=== PATIENT | male | born 1970 | race Caucasian/White ===

== ENCOUNTER 2017-05-02 19:22 | Inpatient (IN) | payer OTHER ==
[~2017-05-02] VITALS: Ht 175.3 cm; Wt 75.0 kg
[~2017-05-02 19:22] MED LIST: BLOOD PRESSURE PO; HUMALOG PEN100 U/ML SC; LANTUS INS100 UNITS/ SC; LISINOPRIL10 MG PO; NORCO 325 MG-101 TAB PO; NORFLEX100 MG PO
[2017-05-02 19:29] VITALS: BP 148/92
[2017-05-02 20:00] LABS: LYMPH % 4.9 % (10-50)
[2017-05-02 20:04] LABS: HEMOGLOBIN 16.8 g/dL (14.1-18.0)
--- NOTE | 2017-05-02 20:25 | Emergency Room Report ---
History of Present Illness Time Seen by 2006 Presenting Problem in Triage Pt arrived:Wheelchair Presenting Problem:vomiting since Tuesday. 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 N Clinical Suspician of Infection? Y Mental Status: 1 - Regular (Normal Baseline) Sepsis Risk:Severe Sepsis Risk Have you (or family members/close friends) recently traveled outside the [place]? N If Yes, where/when: Have you had exposure to infectious disease within the past month? TB? Other? Specify: Source patient, RN notes reviewed, old records Exam Limitations no limitations Comment this is a iddm who has been vomiting since tuesday with no fever but dec po intake and denied etoh and no diarrhea Cardiac Chest Pain Chest pain indicative of cardiac No Timing/Duration this evening Severity moderate ALLERGIES Coded Allergies: No Known Allergies (01/26/17) Home Medications Active Scripts Lisinopril 10 MG PO DAILY #30 TAB Prov: 01/27/17 Reported Medications Insulin Lispro (Humalog INSULIN Pen) 0 SC TID History Medical History General CAD? No Angina: Yes VT: No Hypertension? No Hyperlipidemia? No CHF? No DVT? No PE? No COPD? Yes Asthma? Yes Anemia? No GERD? No Gastric ulcers? No GI Bleed? No Hernia? No Thyroid Problems? No Hypothyroidism? No CVA? No Seizures? No Diabetes? Yes Insulin Dependent: Yes Insulin Pump: No Home FSBS? Yes Renal Insuffiency? No End Stage Renal Disease? No UTI? No Stones? No BPH? Yes GB Disease: No Nephritic Syndrome? No Asplenia? No Hepatitis? No Sickle Cell Disease? No Arthritis? No Migraines? No Cataracts? No Glaucoma? No MRSA? No HIV? No TB? No Anxiety? No Depression? No Cancer? No Immunization Hx DT/Tetanus NOT SURE Flu THIS YR Pneumonia Refuses Surgical Hx Previous Surgery?Y CHEST TUBE? Family History Family Hx Diabetes No CAD No Hypertension No Hyperlipidemia No Cancer Yes TB No Social History Smoking Hx Smoker: Current Every Day Smoker Tobacco: Yes Type Cigarettes Packs/day 1 1/2 - 2 Packs Alcohol Alcohol: No Drugs none Review of Systems All Other Systems Reviewed and Negative Constitutional see HPI, denies fever, weakness Eyes denies drainage ENT denies: ear discharge, epistaxis, throat pain. Respiratory denies cough, denies shortness of breath, denies wheezing Cardiovascular denies chest pain, denies palpitations, denies syncope Gastrointestinal see HPI, abdominal pain, denies diarrhea, nausea, vomiting Genitourinary denies: dysuria, frequency, hesitancy, hematuria. Musculoskeletal denies back pain, denies joint pain, denies joint swelling, denies neck pain Skin denies rash Psychiatric/Neurological denies headache, denies seizure Physical Exam Vital Signs Vital Signs Date Time Temp Pulse Resp B/P Pulse O2 O2 Flow FiO2 Ox Delivery Rate 05/02 2039 97.6 104 20 186/116 100 05/02 1929 97.4 109 28 148/92 99 - WBC >12,000 or <4,000 or 10% bands? 2 or more SIRS Criteria Met? B/P:186/116 MAP:110 Creatinine >2.0? UA output<0.5ml/kg/hr for 2 hrs? Platelet count >100,000? Lactate >2.0mmol/1? INR >1.2 or PTT > than 60 sec? Evidence of Organ Dysfunction? Provider documented clinical suspician of infection? Y Sepsis Criteria Count: 2 Sepsis Risk: Severe Sepsis Risk General Appearance no apparent distress Eye Exam - bilateral eye PERRL, bilateral eye EOMI Comment no icterus Ear, Nose, Throat dry mm Neck non-tender Respiratory Status No: respiratory distress. Lung Sounds bilateral: lungs clear. 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 No Results/Orders Laboratory Tests 05/02/172045: ABG pH 7.38, ABG pCO2 (Temp Corrct 24.2 L, ABG pO2 (Temp Correct 90.0, ABG HCO3 14.1 L, ABG Total CO2 14.8 L, ABG O2 Sat (Calculated) 97.2, ABG Base Excess - 11.0 L, Charly Test ACCEPTABLE 05/02/171939: Lactic Acid 5.2 H 05/02/171939: Sodium 129 L, Potassium 3.4 L, Chloride 87 L, Carbon Dioxide 17 L, BUN 52 H , Creatinine 3.2 H, Estimated Creat Clear 30 L, Estimated GFR (MDRD) 21, Glucose 585 *H, Calcium 9.1, Total Bilirubin 0.7, AST 15, ALT 24, Alkaline Phosphatase 184 H, Total Protein 8.5 H, Albumin 4.5, Globulin 4.0 H, Albumin/ Globulin Ratio 1.1, Amylase 1392 *H, Lipase 8676 H, WBC 20.6 *H, RBC 5.98, Hgb 16.8, Hct 51.8, MCV 86.5, RDW 13.6, Plt Count 401, MPV 7.5, Gran % 87.3 H, Gran # 18.0 H, Total Counted 100, Lymphocytes % 4.9 L, Monocytes % 7.1, Eosinophils % 0.6, Basophils % 0.2, Neutrophils 77 H, Band Neutrophils 13 H, Lymphocytes ( Manual) 10, Lymphocytes # 1.0, Monocytes # 1.5 H, Eosinophils # 0.1, Basophils # 0.0, RBC/WBC/PLT Morphology NORMAL, Platelet Estimate NORMAL, PUBS MCHC 32.5, MCH 28.1, Acetone Level DETECTED H Current Medication Orders Sig/Jose David Start time Last Medication Dose Route Stop Time Status Admin Sodium Chloride 1,000 ML .STK-MED ONE 05/02 2105 DC IV Insulin Human Regular 0 .STK-MED ONE 05/02 2053 DC .ROUTE Sodium Chloride 100 ML .STK-MED ONE 05/02 2052 DC IV Insulin Human Regular 100 UNITS .Q25H 05/02 2045 AC Sodium Chloride 100 ML IV Ondansetron HCl 0 .STK-MED ONE 05/02 2001 DC .ROUTE Ondansetron HCl 4 MG ONCE ONE 05/02 2000 DC 05/02 IV 05/02 Sodium Chloride 1,000 ML .Q1H1M 05/02 2000 DC 05/02 IV 05/02 Sodium Chloride 10 ML PRN PRN 05/02 2000 AC IV 05/03 1946 Sodium Chloride 1,000 ML .STK-MED ONE 05/02 1948 DC IV Orders Procedure Date/time Status DIET-NOTHING BY MOUTH 05/03 B Active ARTERIAL BLOOD GAS REQUEST 05/02 2037 Active Acetone, Serum 05/[address] ABD & PELVIS W/O CONTRAST 05/02 1953 Active CULTURE, BLOOD 05/02 1947 Active LACTIC ACID 05/[address] ABD/PELVIS REQ 05/02 1944 Active URINALYSIS/COMPLETE 05/02 1944 Active LIPASE 05/02 1944 Complete CBC WITH AUTO DIFF 05/02 1944 Complete CHEM 12 PROFILE 05/02 1944 Complete AMYLASE 05/02 1944 Complete DIFFERENTIAL-WBC 05/02 1940 Complete XRAY/CT/US XRAY/CT/US CT abdomen, pelvis CT interpretation by discussed w/radiologist Time results known: 2101 CT Results normal/NAD Departure Departure Time of Disposition 2106 Disposition Still a Patient Clinical Impression Primary Impression: DKA (diabetic ketoacidoses) Qualifiers: Diabetes mellitus type: type 1 Diabetes mellitus complication detail: without coma Qualified Code: E10.10 - Type 1 diabetes mellitus with ketoacidosis without coma Secondary Impressions: Pancreatitis, acute Qualifiers: Pancreatitis type: unspecified pancreatitis type Acute pancreatitis complication: unspecified Qualified Code: K85.90 - Acute pancreatitis without necrosis or infection, unspecified Renal insufficiency Condition STABLE ED Critical Care Critical Care Yes Time spent 30-74 min Vital system(s) involved: Metabolic Failure I was present at bedside for Coordinating pt's care, Reviewing lab results, Reviewing old records, Discussing pt condition, For re-examinations, Examining radiographs at 2108
[2017-05-02 20:50] LABS: ALLEN'S TEST ACCEPTABLE; ARTERIAL TCO2 14.8 MMOL/L (23-27); OXYGEN ROOM AIR
[2017-05-02 20:53] LABS: NEUTROPHILS 77 % (42-76)
--- NOTE | 2017-05-02 22:37 | RADIOLOGY REPORT PS360 ---
CT ABD PELVIS W/O CONTRAST HISTORY: PAINabdominal pain. Vomiting nausea. Diabetic Patient Age: 47 years: Male Ordering Physician: Jim Gamez MD TECHNIQUE: Helical CT scanning performed through the abdomen pelvis with no oral nor IV contrast COMPARISON :Previous CT abdomen pelvis 02/03/2015 FINDINGS Lower thorax. No acute findings hyperexpansion underlying emphysematous changes Upper normal wall thickness distal esophagus Abdomen. Pelvis. Lack of oral and IV contrast decreases sensitivity. Stomach. Prominent gastric distention. Fluid-filled Stomach measures 22 cm height with this fluid filled stomach draping towards uppermost pelvis towards the pelvic inlet. No no gastric wall thickening... Consider/Suggest NG tube... There is a small amount of air which is seen at the right upper quadrant most likely in the region of the pylorus or due to bulb. No free air. Be present. Otherwise encounter a moderately distended a fluid-filled descending duodenum-dilated up to 3.4 cm. This ends changes caliber rather abruptly as it as a duodenum crosses midline-between SMA and aorta question borderline wall thickening at the third portion of duodenum as it passes behind the SMA. Note patient is likely a diabetic with likely subcutaneous injections evident on both sides superficial anterior abdominal wall. With this possibly the gastric dilatation could conceivably reflect gastroparesis or possibly ileus from an electrolyte/metabolic abnormality rather than some form of obstruction The remainder the small bowel appears normal caliber with with areas upper normal wall thickness. Terminal ileum and appendix appear merle l. There is some contrast material within the cecum as well as rectum, likely ingested medication. Large unremarkable. Kidneys. No urinary tract calculi nor obstruction. Gallbladder. Cannot exclude sludge. Liver. Satisfactory on this noncontrast study No ductal dilatation. Spleen unremarkable. Moderate Atherosclerotic calcification aorta No retroperitoneal adenopathy. Osseous structures unremarkable : IMPRESSION 1. . Fluid-filled distended elongated J-shaped stomach. Consider NG tube to decompressed fluid-filled stomach Also the fluid filled proximal duodenal loop is distended of the midline where crosses behind the SMA. Small bowel changes caliber here.. (question SMA syndrome vs minor focal wall thickening here vs ileus or gastroparesis) 2. Otherwise no acute abdominal findings. No free air no free fluid no focal inflammatory process. 3. Gallbladder. No calcified stones.. Question sludge & debris. No wall thickening. 4. subcutaneous injections at the anterior abdominal wall noted copy to francesca / vrc
--- NOTE | 2017-05-02 22:37 | RADIOLOGY REPORT PS360 ---
CHEST-PORTABLE Ordering physician: Jim Gamez MD Age: 47 years Male INDICATION: chest symptomssob nausea vomiting diabetes PROCEDURE: CHEST-PORTABLE FINDINGS: Prior chest film 01/26/2017 used for comparison. No interval change. Lungs well expanded and clear with nothing definitely acute. No pneumothorax. No pleural effusion. Heart normal size. Normal pulmonary vascularity. Hilar and mediastinal structures appear satisfactory. Chest wall unremarkable. T-spine intact. IMPRESSION ----- Stable chest No active disease
[2017-05-02 22:50] VITALS: BP 170/84
[2017-05-02 22:51] VITALS: BP 170/84
[2017-05-03] VITALS (9 sets, daily range): BP systolic 128–166; BP diastolic 66–81
[2017-05-03 04:38] LABS: URINE BLOOD 1+ (NEG)
[2017-05-03 04:40] LABS: URINE BILIRUBIN - DIPSTICK NEGATIVE (NEG)
[2017-05-03 06:28] LABS: BUN 34 mg/dL (7-18)
[2017-05-03 06:32] LABS: GFR (ESTIMATED) 50 ML/MIN (>60)
--- NOTE | 2017-05-03 07:27 | PHARMACY CLINIC NOTE ---
Patient Demographics Patient Demographics Admission date: 05/02/17 Date: 05/03/17 Time: 726 Allergies Coded Allergies: No Known Allergies (01/26/17) HEIGHT- FT: 5 IN: 9.00 K.358 VTE General Information Labs: Laboratory Tests 05/02 1940 Hematology Hgb (14.1 - 18.0 g/dL) 16.8 Hct (42.0 - 52.0 %) 51.8 Plt Count (142 - 424 K/mm3) 401 Disclaimer The following section includes nursing documentation that has been pulled in for pharmacy review. Patient's VTE score: 2 Patient's VTE Risk: VERY LOW RISK Clinical trial participant? No VTE prophylaxis [id number] VTE prophylaxis ordered? Yes Type of prophylaxis/treatment: MARINA at 0727
--- NOTE | 2017-05-03 08:22 | HISTORY AND PHYSICAL REPORT ---
Demographics: Admit date: 05/02/17 Chief complaint: Abdominal pain/vomiting PRIMARY DIAGNOSIS: DKA Allergies: Coded Allergies: No Known Allergies (01/26/17) History of present illness: History of present illness: 47-year-old white male with type 1 diabetes who was at work on Tuesday and felt sick at the end of his work shift, and came home, since that time has been unable to keep fluids down, vomiting, and progressive epigastric pain. Came to the emergency department where he was found to have elevated amylase, lipase and have serum ketones positive along with hyperglycemic blood levels in the 500 range. Patient was diagnosed with "DKA" and admitted to step down unit with insulin drip and n.p.o. status. I reviewed ER notes, labs and x-ray testing. Past medical history: Family HX Diabetes No CAD No Hypertension No Hyperlipidemia No Cancer Yes TB No Immunization HX DT/Tetanus NOT SURE Flu THIS YR Pneumonia Refuses TB Test in last year No General CAD? No Angina: Yes MS: No Hypertension? No Hyperlipidemia? No CHF? No DVT? No PE? No COPD? Yes Asthma? Yes Anemia? No GERD? No Gastric ulcers? No GI Bleed? No Hernia? No Thyroid Problems? No Hypothyroidism? No CVA? No Seizures? No Diabetes? Yes Insulin Dependent: Yes Insulin Pump: No Home FSBS? Yes Renal Insuffiency? No UTI? No Stones? No BPH? Yes GB Disease: No Nephritic Syndrome? No Asplenia? No Hepatitis? No Sickle Cell Disease? No Arthritis? No Migraines? No Cataracts? No Glaucoma? No MRSA? No HIV? No TB? No Anxiety? No Depression? No Cancer? No Past Surgical HX Previous Surgery?Y CHEST TUBE? Current home meds: Active Scripts Lisinopril 10 MG PO DAILY #30 TAB Prov: 01/27/17 Reported Medications Insulin Lispro (Humalog INSULIN Pen) 0 SC TID Social Hx: Smoking HX Tobacco Yes Type Cigarettes Packs/day 1 1/2 - 2 PACKS Alcohol Alcohol: No Hx of Drug Use Drug Use? No Patien't marital status is Patient's support system is excellent Comment: Patient works at [employer] in [facility] Review of systems: Constitutional fever, malaise, weakness. Respiratory No: no symptoms reported. Cardiovascular No no symptoms reported Gastrointestinal/Abdominal see HPI Genitourinary No: no symptoms reported. Musculoskeletal No: no symptoms reported. Neurological Yes: weakness. Exam: Lab data for last 24 hours: Laboratory Tests 05/03/17 0643: POC Glucose 179 H 05/03/17 0554: POC Glucose 177 H 05/03/17 0535: Sodium 137, Potassium 3.5, Chloride 103, Carbon Dioxide 20 L, BUN 34 H, Creatinine 1.5 H, Estimated Creat Clear 59, Estimated GFR (MDRD) 50, Glucose 170 H, Calcium 7.2 L, Amylase 600 *H, Lipase 2172 H, Acetone Level NONE DETECTED 05/03/17 0506: POC Glucose 148 H 05/03/17 0426: Urine Color YELLOW, Urine Appearance CLEAR, Urine pH 6.0, Ur Specific [place] 1.020, Urine Protein 1+ H, Urine Ketones 1+ H, Urine Blood 1+ H, Urine Nitrate NEGATIVE, Urine Bilirubin NEGATIVE, Urine Urobilinogen 0.2, Ur Leukocyte Esterase NEGATIVE, Urine RBC 5-10, Urine WBC 5-10, Hyaline Casts 5-10, Coarse Granular Casts 5-10, Urine Glucose 1+ H 05/03/17 0405: POC Glucose 145 H 05/03/17 0303: POC Glucose 145 H 05/03/17 0202: POC Glucose 187 H 05/03/17 0101: POC Glucose 225 H 05/03/17 0100: Lactic Acid 2.1 H 05/03/17 0100: Sodium 136, Potassium 3.3 L, Chloride 100, Carbon Dioxide 22, BUN 43 H, Creatinine 2.0 H, Estimated Creat Clear 42 L, Estimated GFR (MDRD) 36, Glucose 211 H, Calcium 7.4 L 05/03/17 0024: POC Glucose 234 H 05/02/17 2257: POC Glucose 297 H 05/02/17 2215: Sodium 134 L, Potassium 3.2 L, Chloride 96 L, Carbon Dioxide 22, BUN 49 H, Creatinine 2.5 H, Estimated Creat Clear 38 L, Estimated GFR (MDRD) 28, Glucose 350 H, Calcium 8.1 L, Phosphorus 3.7, Magnesium 1.9 05/02/172045: ABG pH 7.38, ABG pCO2 (Temp Corrct 24.2 L, ABG pO2 (Temp Correct 90.0, ABG HCO3 14.1 L, ABG Total CO2 14.8 L, ABG O2 Sat (Calculated) 97.2, ABG Base Excess - 11.0 L, Charly Test ACCEPTABLE 05/02/171939: Troponin I < 0.02 05/02/171939: Lactic Acid 5.2 H 05/02/171939: Sodium 129 L, Potassium 3.4 L, Chloride 87 L, Carbon Dioxide 17 L, BUN 52 H , Creatinine 3.2 H, Estimated Creat Clear 30 L, Estimated GFR (MDRD) 21, Glucose 585 *H, Calcium 9.1, Total Bilirubin 0.7, AST 15, ALT 24, Alkaline Phosphatase 184 H, Total Protein 8.5 H, Albumin 4.5, Globulin 4.0 H, Albumin/ Globulin Ratio 1.1, Amylase 1392 *H, Lipase 8676 H, WBC 20.6 *H, RBC 5.98, Hgb 16.8, Hct 51.8, MCV 86.5, RDW 13.6, Plt Count 401, MPV 7.5, Gran % 87.3 H, Gran # 18.0 H, Total Counted 100, Lymphocytes % 4.9 L, Monocytes % 7.1, Eosinophils % 0.6, Basophils % 0.2, Neutrophils 77 H, Band Neutrophils 13 H, Lymphocytes ( Manual) 10, Lymphocytes # 1.0, Monocytes # 1.5 H, Eosinophils # 0.1, Basophils # 0.0, RBC/WBC/PLT Morphology NORMAL, Platelet Estimate NORMAL, PUBS MCHC 32.5, MCH 28.1, Acetone Level DETECTED H Microbiology 05/03 042 URINE CC: Urine Culture - RECD 05/02 2200 BLOOD: Anaerobic Blood Culture - CAN Cancelled: DUP ORDER 05/02 2200 BLOOD: Aerobic Blood Culture - CAN Cancelled: DUP ORDER 05/02 2200 BLOOD: Anaerobic Blood Culture - CAN Cancelled: DUP ORDER 05/02 2200 BLOOD: Aerobic Blood Culture - CAN Cancelled: DUP ORDER 05/02 1940 BLOOD: Anaerobic Blood Culture - RECD 05/02 1940 BLOOD: Aerobic Blood Culture - RECD 05/02 1940 BLOOD: Anaerobic Blood Culture - RECD 05/02 1940 BLOOD: Aerobic Blood Culture - RECD Admission vital signs: 1ST Vital Signs Result Date Time Pulse Ox 99 05/02 1929 B/P 148/92 05/02 1929 Temp 97.4 05/02 1929 Pulse 109 05/02 1929 Resp 28 05/02 1929 O2 Delivery ROOM AIR 05/02 2251 Additional information: Patient is awake, alert, no rash. Oropharynx dry but clear. Sclera clear. No periumbilical or flank bruising. Lungs are clear, heart rate at the upper limit of normal but sinus rhythm. No murmurs. Abdomen is very tender in the epigastric area. No rebound or peritoneal signs otherwise. No CVA tenderness. No edema noted. No clubbing. Patient is neurologically intact Plan: Problem List 1. Pancreatitis, acute 2. Type 1 diabetes Plan: Patient clearly has acute pancreatitis but clearly does not have DKA. His initial ABG was not acidotic. Patient's serum ketones are from his metabolic stress. I stop insulin drip, sliding scale insulin be sufficient for him, and aggressively hydrated him with 2 more liters of lactated Ringer's today. The patient does not drink alcohol. We will get ultrasound of gallbladder, surgical consultation for possible gastric distention requiring NG tube on CT scan, repeat abdominal and chest films today. I am concerned about his low-grade fevers. Check chest x-ray, follow cultures closely. Clear liquids cautiously. at 0821
[2017-05-03] MEDS ORDERED: HUMALOG KW100 UNIT/1 SQ (11:31)
--- NOTE | 2017-05-03 11:38 | RADIOLOGY REPORT PS360 ---
ABD ACUTE(MUL VIEWS) HISTORY: Fever, gastric distention eval gastric distension, fever ORDERING PHYSICIAN: Jim Gamez MD PATIENT AGE: 47 years COMPARISON: None FINDINGS: Follow-up of the chest shows no acute finding. Upright and supine views of the abdomen show nonspecific nonobstructive bowel gas pattern. There are few small air-fluid levels present. No evidence of free air abnormal calcifications or acute bony anomalies. IMPRESSION: 1. Nonspecific nonobstructive bowel gas pattern. 2. Otherwise negative acute abdomen
--- NOTE | 2017-05-03 12:56 | RADIOLOGY REPORT PS360 ---
US GALLBLADDER (ABD LTD) HISTORY: Abdominal pain with nausea and vomiting, pancreatitis pancreatitis ORDERING PHYSICIAN: Jim Gamez MD PATIENT AGE: 47 years COMPARISON: None FINDINGS: PANCREAS: Unremarkable. No obvious mass or abnormal fluid collection. No ductal dilatation LIVER: No focal liver lesions demonstrated. Homogeneous echogenicity. No intrahepatic biliary ductal dilatation evident RIGHT KIDNEY: Unremarkable. Normal size and echogenicity. No hydronephrosis GALLBLADDER: No gallstones, gallbladder wall thickening, pericholecystic fluid, or biliary dilatation. There is a small amount of biliary sludge versus hyper concentrated bile IMPRESSION: No gallstones or gallbladder wall thickening apparent. Minimal amount of sludge versus concentrated bile
--- NOTE | 2017-05-03 12:56 | RADIOLOGY REPORT PS360 ---
US GALLBLADDER (ABD LTD) HISTORY: Abdominal pain with nausea and vomiting, pancreatitis pancreatitis ORDERING PHYSICIAN: iJm Gamez MD PATIENT AGE: 47 years COMPARISON: None FINDINGS: PANCREAS: Unremarkable. No obvious mass or abnormal fluid collection. No ductal dilatation LIVER: No focal liver lesions demonstrated. Homogeneous echogenicity. No intrahepatic biliary ductal dilatation evident RIGHT KIDNEY: Unremarkable. Normal size and echogenicity. No hydronephrosis GALLBLADDER: No gallstones, gallbladder wall thickening, pericholecystic fluid, or biliary dilatation. There is a small amount of biliary sludge versus hyper concentrated bile IMPRESSION: No gallstones or gallbladder wall thickening apparent. Minimal amount of sludge versus concentrated bile
--- NOTE | 2017-05-03 15:09 | CONSULT NOTE ---
Standard Demographics Patient Demo Date of Consultation: 05/03/17 Referring Provider: Jim Gamez MD Reason for Consultation: abdominal distention and pain PRIMARY DIAGNOSIS: DKA Allergies: Coded Allergies: No Known Allergies (01/26/17) History of Present Illness Chief Complaint: Nausea and abdominal pain History of Present Illness: Patient is a 47-year-old diabetic white male who presented to the emergency department yesterday on 05/02/17 with a 3 to four-day history of what he describes as initially a sore throat followed by epigastric pain and nausea and vomiting. He states that he was "unable to keep anything down". He presented to the emergency department where he was evaluated. He was admitted for inpatient management and possible DKA. It was noted the patient had elevated amylase and lipase and evidence of gastric distention on imaging and surgical consultation was obtained today. Past Medical History Reports: COPD, asthma, diabetes mellitus. Surgical History Previous Surgery?Y CHEST TUBE? Allergies Coded Allergies: No Known Allergies (01/26/17) Medications: Active Scripts Lisinopril 10 MG PO DAILY #30 TAB Prov: 01/27/17 Reported Medications Insulin Lispro (Humalog Kwikpen) 15 UNIT SQ TID #15 ML Smoking Hx Tobacco: Yes Smoker: Current Every Day Smoker Type: Cigarettes Packs/day: 1 1/2 - 2 Packs Are you/the child exposed to second-hand smoke: Yes Alcohol Alcohol: No Hx of Drug Use Drug Use? No Review of Systems Constitutional No: chills. Skin No: bruising. Immune/allergy No: anaphalaxis. Eyes No: vision loss. ENT No: hearing loss. Respiratory No: shortness of air. Cardiovascular No: chest pain. GI Positive for: abdomen, nausea, vomitting. (male) No: hematuria. Musculoskeletal No: extremity swelling. Heme No: bleeding. Endocrine No: cold intolerance. Neurological No: change in LOC. Physical Exam Exam General appearance no acute distress Respiratory clear to auscultation Cardiovascular normal heart sounds Abdomen no guarding, no rebound, soft Plan Plan: Patient has evidence of chemical pancreatitis. Uncertain etiology. Gallbladder ultrasound today unremarkable. Appears less likely biliary based on laboratory findings and sonographic imaging of gallbladder. At this time I would recommend expectant management. May go ahead and start clear liquids due to clinical improvement. Uncertain as to the etiology of the patient's symptoms of sore throat unless this is secondary to the vomiting. Findings a gastric distention on initial noncontrast CT scan could be secondary to ileus from pancreatitis, partial gastric outlet obstruction secondary to pancreatic edema, or gastroparesis. Less likely would be mechanical obstruction. at 7938
[2017-05-04] VITALS (8 sets, daily range): BP systolic 148–161; BP diastolic 65–79
--- NOTE | 2017-05-04 07:56 | ACUTE CARE PROGRESS NOTE (QUA) ---
Progress Notes Subjective Date 05/04/17 Time 0753 Note Patient has been tolerating clear liquids fairly well but complains bitterly of a significant sore throat. Nursing notes he is unable to swallow ice chips because of a sore throat. On exam patient is better hydrated, his lips have some scabbed vesicles and the posterior pharynx has significant redness with some eroded blisters and a slight yellow exudate on the right tonsillar pillar. There is no lymphadenitis noted. He has no rash elsewhere, lungs are clear his abdomen is much softer. Objective Findings Last VS-Temp:98.5 B/P:161/72 Pulse:74 Resp:18 SaO2:99 ROOM AIR Last weight lbs:148 oz:8 K.359 Method:Bed Scales Assessment/Plan Problem List 1. Pancreatitis, acute Qualifiers: Pancreatitis type: unspecified pancreatitis type Acute pancreatitis complication: unspecified Qualified Code: K85.90 - Acute pancreatitis without necrosis or infection, unspecified 2. Type 1 diabetes 3. Infective pharyngitis Patient condition Improving Plan: continue current care, patient responded well to fluids. I wonder if pharyngitis might be a viral etiology that could be the source of his pancreatitis. PCR testing, throat cultures, symptomatic relieved with magic mouthwash and Chloraseptic spray along with intravenous Unasyn therapy to cover bacterial pathogens. This inpt stay is expected to cross 2 MNs from start of care Yes at 0754
[2017-05-04 09:26] LABS: CORONAVIRUS 229E NOT DETECTED (NOT DETECTE); CORONAVIRUS HKU 1 NOT DETECTED (NOT DETECTE); CORONAVIRUS NL63 NOT DETECTED (NOT DETECTE); CORONAVIRUS OC43 NOT DETECTED (NOT DETECTE); RHINOVIRUS/ENTEROVIRUS NOT DETECTED (NOT DETECTE)
--- NOTE | 2017-05-04 13:17 | SURGEON PROGRESS NOTE ---
Subjective data Subjective data: VIKAS ALMEIDA is a 47 M .Patient denies complaint of nausea and vomitting.He reports his last pain level as 0 on a 0-10 pain scale. Patient's only complaint is sore throat. Less abdominal pain. Tolerating liquids. Assessment findings Assessment Exam ABD: soft, no tenderness Patient plan Plan: IV fluids Additional data: Non-biliary pancreatitis. Continue expectant managemetnt. at 1317
[2017-05-05] VITALS (18 sets, daily range): BP systolic 125–167; BP diastolic 66–96
[2017-05-05 06:44] LABS: LYMPH # 1.1 K/mm3 (0.7-4.5); LYMPH % 7.1 % (10-50)
[2017-05-05 07:12] LABS: HEMOGLOBIN 14.2 g/dL (14.1-18.0)
--- NOTE | 2017-05-05 07:52 | ACUTE CARE PROGRESS NOTE (QUA) ---
Progress Notes Subjective Date 05/05/17 Time 0750 Note Patient is alert, has drank most of his clear liquids, but is very tachypnea this morning and feels like "I need a breathing treatment." Exam is tachypnea, but good air movement, and he slightly tachycardic. Oropharynx looks somewhat better and is moist. No murmurs. Abdomen is scaphoid but soft. No edema noted. Objective Findings Last VS-Temp:97.8 B/P:157/82 Pulse:66 Resp:32 SaO2:96 ROOM AIR Last weight lbs:148 oz:8 K.359 Method:Bed Scales Assessment/Plan Problem List 1. Pancreatitis, acute Qualifiers: Pancreatitis type: unspecified pancreatitis type Acute pancreatitis complication: unspecified Qualified Code: K85.90 - Acute pancreatitis without necrosis or infection, unspecified 2. Type 1 diabetes 3. Infective pharyngitis Patient condition Guarded Plan: continue current care, continue antibiotics. Continue bowel rest and slow diet advancement for pancreatitis issues. I'm concerned that the change in respiratory status is a manifestation of recurrent/unresolve DKA. Check ABG, serum acetone, labs from this morning are pending. This inpt stay is expected to cross 2 MNs from start of care Yes at 0752
[2017-05-05 08:33] LABS: ARTERIAL PO2 164.2 MMHG (80-100)
[2017-05-05 08:34] LABS: ALLEN'S TEST ACCEPTABLE; ARTERIAL ABE -27.8 MMOL/L (-2.4-+2.3); ARTERIAL TCO2 3.1 MMOL/L (23-27); OXYGEN ROOM AIR
--- NOTE | 2017-05-05 08:59 | SURGEON PROGRESS NOTE ---
Subjective data Subjective data: VIKAS ALMEIDA is a 47 M .Patient denies complaint of nausea and vomitting.He reports his last pain level as 0 on a 0-10 pain scale. Patient noted to be tachypnic on exam this morning and transferred back into step-down unit. Assessment findings Assessment Exam General appearance: mild distress ABD: soft Comment: Exam difficult. No obvious peritonitis. Patient plan Plan: Antibiotics Additional data: Patient has significant metabolic acidosis. Remaining labs pending. Unclear etiology. Possibility of worsening pancreatitis is legitimate consideration. May need repeat CT scan. However, pancreatitis is non-biliary. Could require transfer to tertiary facility. at 0852
[2017-05-05 09:03] LABS: BUN 17 mg/dL (7-18)
[2017-05-05 09:07] LABS: GFR (ESTIMATED) 59 ML/MIN (>60)
[2017-05-05 10:09] LABS: NEUTROPHILS 88 % (42-76)
--- NOTE | 2017-05-05 13:36 | RADIOLOGY REPORT PS360 ---
CHEST-PORTABLE HISTORY: tachypnea ORDERING PHYSICIAN: Jim Gamez MD PATIENT AGE: 47 years COMPARISON: 05/02/2017 FINDINGS: The cardiomediastinal silhouette and pulmonary vascularity are within normal limits. There is some increased density left lung base probably related to mild rotation and overlying heart and chest wall. Upright PA and lateral chest may be of further value. The remaining lungs are clear. IMPRESSION: No definite acute finding. Probable summation artifact left lower lobe.
[2017-05-05 21:26] LABS: ARTERIAL PO2 95.2 MMHG (80-100)
[2017-05-05 21:27] LABS: ALLEN'S TEST ACCEPTABLE; ARTERIAL ABE -14.6 MMOL/L (-2.4-+2.3); OXYGEN ROOM AIR
[2017-05-06] VITALS (9 sets, daily range): BP systolic 116–167; BP diastolic 60–84
[2017-05-06 06:29] LABS: BUN 9 mg/dL (7-18); GFR (ESTIMATED) 121 ML/MIN (>60)
[2017-05-06 06:40] LABS: ALLEN'S TEST ACCEPTABLE; ARTERIAL ABE -9.6 MMOL/L (-2.4-+2.3); ARTERIAL PO2 96.4 MMHG (80-100); ARTERIAL TCO2 15.6 MMOL/L (23-27); OXYGEN ROOM AIR
[2017-05-06 06:53] LABS: LYMPH # 1.3 K/mm3 (0.7-4.5); LYMPH % 10.5 % (10-50)
[2017-05-06 07:12] LABS: HEMOGLOBIN 11.2 g/dL (14.1-18.0)
--- NOTE | 2017-05-06 08:00 | ACUTE CARE PROGRESS NOTE (QUA) ---
Progress Notes Subjective Date 05/06/17 Time 0758 Note Overall patient feels better. Much less tachypnea. Vital signs have normalized. No acetone this morning. Low potassium noted. Throat looks better, lungs are clear, heart rate regular, patient able to swallow some soft diet. Objective Findings Last VS-Temp:98.1 B/P:131/60 Pulse:74 Resp:19 SaO2:100 ROOM AIR Last weight lbs:154 oz:6 K.023 Method:Bed Scales Assessment/Plan Problem List 1. Pancreatitis, acute Qualifiers: Pancreatitis type: unspecified pancreatitis type Acute pancreatitis complication: unspecified Qualified Code: K85.90 - Acute pancreatitis without necrosis or infection, unspecified 2. Type 1 diabetes 3. Infective pharyngitis Patient condition Improving, overall improving. Replace electrolytes. Acidosis resolved. This inpt stay is expected to cross 2 MNs from start of care Yes at 0800
[2017-05-06 16:19] LABS: BUN 5 mg/dL (7-18); GFR (ESTIMATED) 121 ML/MIN (>60)
--- NOTE | 2017-05-06 18:25 | SURGEON PROGRESS NOTE ---
Subjective data Subjective data: VIKAS ALMEIDA is a 47 M .Patient denies complaint of nausea and vomitting.He reports his last pain level as 0 on a 0-10 pain scale. Patient without complaints. States he feels much better. Tolerating mechanical soft diet without difficulty. Assessment findings Assessment Exam General appearance: normal appearance, alert ABD: soft, no tenderness Patient plan Plan: CONTINUE MEDICAL MANAGEMENT Additional data: Pancreatitis appears to be resolving. Etiology still unclear but no evidence of biliary pancreatitis requiring surgical intervention. Metabolic acidosis resolved. at 0030
[2017-05-07 04:00] VITALS: BP 121/51
[2017-05-07 06:20] LABS: HEMOGLOBIN 11.1 g/dL (14.1-18.0); LYMPH # 1.4 K/mm3 (0.7-4.5); LYMPH % 18.2 % (10-50)
--- NOTE | 2017-05-07 06:36 | ACUTE CARE PROGRESS NOTE (QUA) ---
Progress Notes Subjective Date 05/07/17 Time 0634 Note Overall patient feels better, throats better, tolerating diet yesterday well. Throat is less red. Much more moist. Heart rate regular, normal rate. Lungs are clear, minimal rhonchi in the LEFT lower lung field. Abdomen much softer, epigastric tenderness is improved. Objective Findings Last VS-Temp:98.7 B/P:121/51 Pulse:72 Resp:18 SaO2:97 ROOM AIR Last weight lbs:154 oz:6 K.023 Method:Bed Scales Assessment/Plan Problem List 1. Pancreatitis, acute Qualifiers: Pancreatitis type: unspecified pancreatitis type Acute pancreatitis complication: unspecified Qualified Code: K85.90 - Acute pancreatitis without necrosis or infection, unspecified 2. Type 1 diabetes 3. Infective pharyngitis 4. DKA (diabetic ketoacidoses) Qualifiers: Diabetes mellitus type: type 1 Diabetes mellitus complication detail: without coma Qualified Code: E10.10 - Type 1 diabetes mellitus with ketoacidosis without coma Patient condition Improving Plan: continue current care, continue antibiotic therapy, replace potassium orally. Replace calcium intravenously. Possibly home tomorrow if labs tomorrow morning look good. This inpt stay is expected to cross 2 MNs from start of care Yes at 0635
[2017-05-07 07:27] VITALS: BP 151/64
--- NOTE | 2017-05-07 08:36 | SURGEON PROGRESS NOTE ---
Subjective data Subjective data: VIKAS ALMEIDA is a 47 M .Patient denies complaint of nausea and vomitting.He reports his last pain level as 0 on a 0-10 pain scale. Patient feels much better. His only complaint is right ear "popping" and congestion. No abdominal complaints. Sore throat better. Assessment findings Assessment Exam General appearance: normal appearance, alert ABD: soft, no tenderness Patient plan Plan: continue medical management at 0821
[2017-05-07 09:03] VITALS: BP 151/64
[2017-05-07 16:00] VITALS: BP 137/79
[2017-05-07 19:00] VITALS: BP 158/75
[2017-05-07 20:15] VITALS: BP 158/75
[2017-05-08] VITALS (8 sets, daily range): BP systolic 120–159; BP diastolic 52–83
[2017-05-08 06:24] LABS: HEMOGLOBIN 12.1 g/dL (14.1-18.0); LYMPH # 1.4 K/mm3 (0.7-4.5); LYMPH % 18.1 % (10-50)
--- NOTE | 2017-05-08 07:40 | ACUTE CARE PROGRESS NOTE (QUA) ---
Progress Notes Subjective Date 05/08/17 Time 0738 Note Patient overall feels better than couple of days ago, but notes that every time he eats he has a burning pain and sharp stabbing pain in the lower chest/upper epigastric area. This has limited him from ideal oral intake. Also noted, small acetone yesterday in serum testing and this morning his acidosis is somewhat worsened with CO2 levels declining. Potassium is unremarkable, kidney function is good. The patient is a bright, alert, pleasant, talkative. Throat looks better, lungs are clear, heart rate regular without tachycardia. He does not exhibit tachypnea signs today. Continues to appear cachectic. Abdomen is soft with some epigastric tenderness noted. Objective Findings Laboratory Tests 05/08/17 0620: POC Glucose 324 *H 05/08/17 0550: Sodium 123 L, Potassium 3.8, Chloride 96 L, Carbon Dioxide 14 L, BUN 7, Creatinine 0.7 L, Estimated Creat Clear 131, Estimated GFR (MDRD) 121, Glucose 371 H, Calcium 7.9 L, WBC 7.6, RBC 4.34 L, Hgb 12.1 L, Hct 38.4 L, MCV 88.4 , RDW 14.0, Plt Count 262, MPV 8.0, Gran % 75.0, Gran # 5.7, Lymphocytes % 18.1, Monocytes % 5.2, Eosinophils % 1.4, Basophils % 0.3, Lymphocytes # 1.4, Monocytes # 0.4, Eosinophils # 0.1, Basophils # 0.0, PUBS MCHC 31.6 L, MCH 27.9 05/07/17 2018: POC Glucose 179 H 05/07/17 1710: POC Glucose 211 H 05/07/17 1147: POC Glucose 335 *H Last VS-Temp:97.9 B/P:151/83 Pulse:71 Resp:20 SaO2:96 ROOM AIR Last weight lbs:154 oz:6 K.023 Method:Bed Scales Assessment/Plan Problem List 1. Pancreatitis, acute Qualifiers: Pancreatitis type: unspecified pancreatitis type Acute pancreatitis complication: unspecified Qualified Code: K85.90 - Acute pancreatitis without necrosis or infection, unspecified 2. Type 1 diabetes 3. Infective pharyngitis 4. DKA (diabetic ketoacidoses) Qualifiers: Diabetes mellitus type: type 1 Diabetes mellitus complication detail: without coma Qualified Code: E10.10 - Type 1 diabetes mellitus with ketoacidosis without coma 5. Epigastric pain Patient condition Stable Plan: continue current care, I'm concerned about the reappearance of acetone and we will check this again today. His glucose levels are not significantly elevated, and I wonder if the acetone levels are simply from his infectious issues and dehydration. Fluid boluses today. Proton pump inhibitors to help with epigastric pain. I will discuss with surgery service whether endoscopy would be indicated. This inpt stay is expected to cross 2 MNs from start of care Yes at 0740
--- NOTE | 2017-05-08 10:36 | SURGEON PROGRESS NOTE ---
Subjective data Subjective data: VIKAS ALMEIDA is a 47 M .Patient denies complaint of nausea and vomitting.He reports his last pain level as 3 on a 0-10 pain scale. Patient complains today of immediate post-prandial epigastric pain and discomfort. No nausea. Assessment findings Assessment Exam General appearance: normal appearance, alert ABD: soft, no tenderness Patient plan Plan: Antibiotics Additional data: Would not pursue EGD as immediate next step. Symptoms may be secondary to pancreatitis issues. Since his initial CT scan was done without IV or oral contrast plan to repeat CT scan tomorrow morning with IV and oral contrast for better delineation of GI tract and solid organs. at 1039
[2017-05-09] VITALS (16 sets, daily range): BP systolic 137–165; BP diastolic 54–85
[2017-05-09 06:46] LABS: LYMPH # 2.2 K/mm3 (0.7-4.5); LYMPH % 20.3 % (10-50)
[2017-05-09 06:51] LABS: HEMOGLOBIN 13.6 g/dL (14.1-18.0)
[2017-05-09 06:56] LABS: BUN 6 mg/dL (7-18); GFR (ESTIMATED) 91 ML/MIN (>60)
--- NOTE | 2017-05-09 09:00 | ACUTE CARE PROGRESS NOTE (QUA) ---
Progress Notes Subjective Date 05/09/17 Time 0859 Assessment/Plan Problem List 1. Pancreatitis, acute 2. Type 1 diabetes 3. Infective pharyngitis 4. DKA (diabetic ketoacidoses) 5. Epigastric pain This inpt stay is expected to cross 2 MNs from start of care Yes Antibiotic Stewardship (2) Current Culture Results Microbiology 05/04 0920 THROAT: Throat Culture - RES STREPTOCOCCUS PYOGENES 05/03 0426 URINE CC: Urine Culture - COMP 05/02 220 BLOOD: Anaerobic Blood Culture - CAN Cancelled: DUP ORDER 05/02 220 BLOOD: Aerobic Blood Culture - CAN Cancelled: DUP ORDER Infxn that will respond? Yes (S. PYOGENES) Right drug,dose,and route? Yes (UNASYN) More targeted antbx? No at 0900
--- NOTE | 2017-05-09 10:35 | RADIOLOGY REPORT PS360 ---
CT ABD PELVIS W/ CONTRAST CLINICAL INDICATION: Epigastric pain, pancreatitis EPIGASTRIC PAIN PANCREATITIS ORDERING PHYSICIAN: Jim Gamez MD PATIENT AGE: 47 years COMPARISON: 05/02/2017 TECHNIQUE: Axial images obtained with sagittal and coronal reformats. 3 phase imaging performed of the upper abdomen/pancreas PROCEDURE: Oral Contrast: Gastroview IV Contrast: 75 mL of Isovue-370. FINDINGS: Small bilateral pleural effusions have developed with atelectatic changes in the lung bases. The liver, gallbladder, and pancreas have an unremarkable CT appearance. No evidence of pancreatic abscess or necrosis. There are several isodensity is present in the spleen nonspecific measuring up to 8 mm. These are not significantly changed. No renal calculi or hydronephrosis. No renal mass. No ureteral calculi. No evidence of appendicitis or diverticulitis. No intestinal obstruction or free air. Previously noted gastric distention has improved. There is nonrotation of the bowel with the small bowel mostly on the left side in the large bowel the right. There is thickening of the cecum and ascending colon is may be due to nondistention or colitis. No acute bony anomalies. IMPRESSION: 1. Interval development of small bilateral pleural effusions 2. Anasarca with diffuse subcutaneous and peritoneal edema with a small amount fluid in the pelvis. 3. No CT evidence of acute pancreatitis.
--- NOTE | 2017-05-09 11:24 | ACUTE CARE PROGRESS NOTE (QUA) ---
Progress Notes Subjective Date 05/09/17 Time 1121 Note Patient continues to have very poor p.o. intake because of burning in his stomach after he eats. He's had no fevers. He he is not tachypneic or tachycardic this morning feels overall generally slightly weak. Lungs are clear, abdomen soft with epigastric tenderness as previously noted. Heart rate regular. No edema or clubbing. Patient's neurologically intact, oropharynx is clear. Unfortunately he once again acidotic this morning with ketones again present in his serum. Objective Findings Last VS-Temp:98.0 B/P:149/77 Pulse:86 Resp:16 SaO2:100 ROOM AIR Last weight lbs:154 oz:6 K.023 Method:Bed Scales Assessment/Plan Problem List 1. Pancreatitis, acute Qualifiers: Pancreatitis type: unspecified pancreatitis type Acute pancreatitis complication: unspecified Qualified Code: K85.90 - Acute pancreatitis without necrosis or infection, unspecified 2. Type 1 diabetes 3. Infective pharyngitis 4. DKA (diabetic ketoacidoses) Qualifiers: Diabetes mellitus type: type 1 Diabetes mellitus complication detail: without coma Qualified Code: E10.10 - Type 1 diabetes mellitus with ketoacidosis without coma 5. Epigastric pain Patient condition Stable, Deteriorating Plan: continue current care, restart insulin drip because of the presence of ketones, and metabolic acidosis. I'm concerned about his recurrent episodes of acidosis after insulin drip therapy clears his ketones but then recurs. Echocardiogram today to make sure we don't have some type of valvular vegetation issue from his strep in his throat infection. Also, he continues to have some signs/symptoms of lingering pancreatitis. GI consultation today. Surgery remains involved and ordered a CT scan of abdomen and pelvis. We will review this. Possible need for EGD? This inpt stay is expected to cross 2 MNs from start of care Yes Antibiotic Stewardship (2) Infxn that will respond? Yes (S. PYOGENES) Right drug,dose,and route? Yes (UNASYN) More targeted antbx? No at 1124
--- NOTE | 2017-05-09 12:31 | SURGEON PROGRESS NOTE ---
Subjective data Subjective data: VIKAS ALMEIDA is a 47 M .Patient denies complaint of nausea and vomitting.He reports his last pain level as 3 on a 0-10 pain scale. Patient complains of being hungry and wanting something to eat as he has been NPO for studies and procedures today. Assessment findings Assessment Exam General appearance: normal appearance, alert ABD: soft Patient plan Plan: EGD Additional data: CT scan today relatively unremarkable without CT evidence of pancreatitis or sequelae. GI planning upper endoscopy today. Antibiotic Stewardship (2) Infxn that will respond? Yes (S. PYOGENES) Right drug,dose,and route? Yes (UNASYN) More targeted antbx? No at 1231
--- NOTE | 2017-05-09 14:41 | Operative Note ---
Upper GI Endoscopy Procedure date: 05/09/17 Date of : 72 Procedure:Upper GI Endoscopy Esophagogastroduodenoscopy with cold biopsies Indications: Mr. Ramírez is a 47-year-old gentleman who presents with acute abdominal pain that began Tuesday afternoon after work and began suddenly. He was not having any symptoms prior to this. His initial CAT scan showed interstitial pancreatitis. There was also evidence of gastric distention with fluid-filled stomach and a distended fluid-filled descending duodenum dilated to 3.4 cm. This abruptly ended at the SMA confluence between the duodenum and superior mesenteric artery. Incidentally, the patient has had RIGHT upper quadrant and epigastric pain with initial nausea and vomiting. Initially he had some constipation but now has had loose bowel movements. His initial amylase 1392 and lipase 8676 on May 02, 2017 were consistent with the changes but the CT scan was noncontrast and was clearly not as definitive in severity as IV/oral contrast CT scan. The pancreatic chemistries have slowly declined (amylase 600 (/5) and 112 (9/7) and lipase 2172 (/5) and 847 (9/7). The patient has had an elevated alkaline phosphatase from the beginning and today was 160. He does have type 1 diabetes mellitus. His ultrasound of the abdomen showed no gallstones or gallbladder wall thickening and there was a minimal amount of sludge versus concentrated bile within the gallbladder but there was no biliary ductal dilation identified by report. Performing Provider: Domo Arzola MD Referring Provider: Jim Gamez M.D./Trevon Pettit M.D. Sedation: MAC sedation Procedure: Prior to the procedure, a history and physical exam was performed, and patients medications and allergies were reviewed. The risks and benefits of the procedure and the sedation options and risks were discussed with the patient. All questions were answered and informed consent was obtained. The patient was brought to the procedure room. Patient identification and proposed procedure were verified by the physician and the nurse. The patient was placed in a left lateral decubitus position and the scope was passed under direct vision. Throughout the procedure, the patient's blood pressure, pulse, and oxygen saturations were monitored continuously. The endoscope was introduced through the mouth, and advanced to the second part of duodenum. The upper GI endoscopy was accomplished without difficulty. The patient tolerated the procedure well. Findings: The scope was passed directly into the upper esophagus and advanced to the fourth portion of the duodenum. Upon withdrawal of the third portion of the duodenum and fourth portion of the duodenum were examined carefully and there was no evidence of any extrinsic compression or evidence of superior mesenteric artery syndrome. There was certainly no stasis changes in the stomach or duodenum. The scope was withdrawn through a normal bulb and pylorus into the stomach. Cold biopsies had been obtained from the second portion of the duodenum to rule out celiac disease but the conniventes were normal without scalloping. Within the stomach, there was moderate bile reflux with some mild linear reactive antritis/gastritis and pylorospasm. The body and fundus of the stomach are grossly normal. Cold biopsies were obtained. Upon retroflexion there was a very small 1-2 cm sliding hiatal hernia. The scope was withdrawn into the esophagus. There was marked circumferential ulceration consistent with grade D severe reflux esophagitis that extended several centimeters proximally. There was no clear evidence of Ambrocio's. Cold biopsies were obtained from the esophagus. Immediate complications: None EBL (ml): 0 Impression: 1. Severe reflux esophagitis (grade D LA classification) with very small sliding hiatal hernia 2. Bile reflux with mild linear reactive gastritis of antrum/body 3. Normal third/fourth portion of duodenum with no evidence of SMA syndrome Recommendations: I would certainly not hang my hat on a noncontrast CT scan. There is no endoscopic evidence of SMA syndrome and without IV contrast, the findings on CAT scan are mostly equivocal. SMA syndrome does not present in this fashion and is usually chronic and not acute. This patient's abdominal pain are sequela from acute pancreatitis which is not well delineated from this CAT scan which was not done by pancreatic protocol. I would consider MRCP since I do believe this is biliary pancreatitis with his ongoing elevation of alkaline phosphatase. He may require ERCP but I would certainly wait until the pancreatitis cools down. I would continue PPI therapy twice a day orally and I would add metoclopramide 10 mg by mouth before meals and at bedtime. I will follow-up the biopsies. I would like for him to follow up in clinic within the next 1-2 weeks so we can determine whether ERCP is appropriate based upon his level of clinical improvement, alkaline phosphatase and MRCP findings. at 1440
--- NOTE | 2017-05-09 22:17 | RADIOLOGY REPORT PS360 ---
PROCEDURE: 2-D M-mode and color Doppler study INDICATIONS FOR THE TEST: Chest pain+ COPD+ Heart Murmur Tobacco Smoking+ Palpitations Fatigue Syncope Edema Hypertension Diabetes Mellitus+ Rheumatic Fever SOB DUMONT+Obesity Hyperlipidemia Family History HD Additional History Pancreatitis, dizziness PATIENT INFORMATION HEIGHT: 69 WEIGHT: 154 GENDER: Male B/P: 151/83 2-D/M-MODE INTERPRETATION: 2-D MEASUREMENTS OBSERVED VALUES IN CMS Right Ventricular Dimension (RVDd) 2.5 Interventricular Septum (Thickness)(IVsd) 1.0 Left Ventricular Internal Dimensions(LVIDd) 4.8 Left Ventricular Posterior Wall (Thickness)(LVPWd) 1.0 Aortic Root 3.2 Aortic Cusp Separation 2.4 Left Atrial Dimensions (LAD) 2.3 2D 1. Left atrium is qualitatively mildly enlarged, left ventricle is normal size, visually estimated ejection fraction of 55% with no obvious regional wall motion abnormality. 2. The right atrium and right ventricle are relatively normal size and function. 3. The aortic valve is minimally thickened and fibrosed. 4. The mitral and tricuspid valves are grossly normal. 5. The pulmonic valve is not well visualized. 6. No significant pericardial effusion noted. DOPPLER INTERROGATION: Doppler interrogation of the aortic, mitral and tricuspid valvular presence of mild mitral and tricuspid regurgitation, calculated right ventricular systolic pressure is 33 mmHg, diastolic parameters are within normal range. CONCLUSION: 1. Mildly enlarged left atrium, normal left ventricular size, visually estimated ejection fraction 55% with no obvious regional wall motion abnormality. Diastolic parameters are within normal range. 2. Mild mitral and tricuspid regurgitation, calculated right ventricular systolic pressure is 33 mmHg. 3. No significant pericardial effusion noted.
[2017-05-10] VITALS (12 sets, daily range): BP systolic 138–162; BP diastolic 68–94
[2017-05-10 06:03] LABS: LYMPH # 1.9 K/mm3 (0.7-4.5); LYMPH % 22.4 % (10-50)
[2017-05-10 06:06] LABS: HEMOGLOBIN 10.9 g/dL (14.1-18.0)
--- NOTE | 2017-05-10 07:18 | ACUTE CARE PROGRESS NOTE (QUA) ---
Progress Notes Subjective Date 05/10/17 Time 0716 Note Overall patient feels somewhat better. Is very concerned today about his ability to get back to work given the length of time he's been in the hospital with these serious medical illnesses. Glucose this morning 135. Potassium low at 2.8, acetone levels not detected in serum. Of note patient CO2 levels are higher than they have been on this admission. Exam is unchanged suggestive day. Red throat is improving. Lungs clear, heart rate regular, abdomen is softer but continued epigastric pain noted. Gastrointestinal consultation and procedure note reviewed and appreciated. Objective Findings Last VS-Temp:98.2 B/P:160/72 Pulse:77 Resp:17 SaO2:94 ROOM AIR Last weight lbs:157 oz:1 K.242 Method:Bed Scales Assessment/Plan Problem List 1. Pancreatitis, acute Qualifiers: Pancreatitis type: unspecified pancreatitis type Acute pancreatitis complication: unspecified Qualified Code: K85.90 - Acute pancreatitis without necrosis or infection, unspecified 2. Type 1 diabetes 3. Infective pharyngitis 4. DKA (diabetic ketoacidoses) Qualifiers: Diabetes mellitus type: type 1 Diabetes mellitus complication detail: without coma Qualified Code: E10.10 - Type 1 diabetes mellitus with ketoacidosis without coma 5. Epigastric pain Patient condition Improving, plan will be once again to stop his insulin drip. See if he can maintain normal acidosis/base status off this drip. Gastrointestinal recommendations have been implemented.continue current therapy in this regard. Continue IV antibiotics for strep infection. Echo reviewed. Blood cultures negative. Pancreatitis clinically improving but MRCP as noted. This inpt stay is expected to cross 2 MNs from start of care Yes Antibiotic Stewardship (2) Infxn that will respond? Yes (S. PYOGENES) Right drug,dose,and route? Yes (UNASYN) More targeted antbx? No at 0717
--- NOTE | 2017-05-10 10:34 | RADIOLOGY REPORT PS360 ---
MRI-ABD W/O CLINICAL INDICATION: PANCREATITIS ORDERING PHYSICIAN: Jim Gamez MD PATIENT AGE: 47 years COMPARISON: CT scan of 05/09/2017 TECHNIQUE: Standard MRI abdomen performed with MRCP without contrast. LIMITATIONS: There is considerable motion artifact which does decrease the sensitivity of the exam. FINDINGS: No evidence of biliary dilatation. No common duct stones apparent. No obvious stricture of the common bile duct. Pancreatic duct is not well delineated but does not appear enlarged. No pancreatic or peripancreatic fluid collections are evident. No obvious gallstones. There are small bilateral pleural effusions. No hepatic or renal abnormalities apparent. IMPRESSION: Negative MRCP
[2017-05-11] VITALS (7 sets, daily range): BP systolic 135–160; BP diastolic 62–90
[2017-05-11 05:56] LABS: HEMOGLOBIN 11.9 g/dL (14.1-18.0); LYMPH # 1.8 K/mm3 (0.7-4.5); LYMPH % 23.9 % (10-50)
--- NOTE | 2017-05-11 07:03 | ACUTE CARE PROGRESS NOTE (QUA) ---
Progress Notes Subjective Date 05/11/17 Time 0700 Note Overall patient feels better. Denies chest pain or shortness of air, reports that full liquids have been tolerated nicely. Heart rate and blood pressure are normal, has been a little bit tachycardic when moving around but better than previous values. Lungs are clear, heart rate regular. Abdomen is soft, very minimal epigastric pain. No periumbilic or flank bruising. No edema noted. No clubbing. Objective Findings Laboratory Tests 05/11/17 0530: Sodium 136, Potassium 3.9, Chloride 102, Carbon Dioxide 27, BUN 4 L, Creatinine 0.5 L, Estimated Creat Clear 186, Estimated GFR (MDRD) 179, Glucose 298 H, Calcium 7.7 L, WBC 7.5, RBC 4.26 L, Hgb 11.9 L, Hct 36.2 L, MCV 84.9, RDW 14.4, Plt Count 379, MPV 6.9 L, Gran % 67.1, Gran # 5.0, Lymphocytes % 23.9, Monocytes % 4.7, Eosinophils % 3.8, Basophils % 0.4, Lymphocytes # 1.8, Monocytes # 0.4, Eosinophils # 0.3, Basophils # 0.0, PUBS MCHC 32.9, MCH 27.9, Acetone Level SMALL 05/10/17 2020: POC Glucose 246 H 05/10/17 1805: Acetone Level SMALL 05/10/17 1705: POC Glucose 399 *H Last VS-Temp:98 B/P:165/83 Pulse:70 Resp:18 SaO2:95 ROOM AIR Last weight lbs:163 oz:3 K.021 Method:Bed Scales Assessment/Plan Problem List 1. Pancreatitis, acute Qualifiers: Pancreatitis type: unspecified pancreatitis type Acute pancreatitis complication: unspecified Qualified Code: K85.90 - Acute pancreatitis without necrosis or infection, unspecified 2. Type 1 diabetes 3. Infective pharyngitis 4. DKA (diabetic ketoacidoses) Qualifiers: Diabetes mellitus type: type 1 Diabetes mellitus complication detail: without coma Qualified Code: E10.10 - Type 1 diabetes mellitus with ketoacidosis without coma 5. Epigastric pain Patient condition Improving, overall patient improving. Replace calcium today. Continue Antibiotic therapy for streptococcal throat infection, blood cultures negative. pancreatitis is clinically improving. MRCP yesterday is negative. Advance diet today. Small amount of acetone in serum but no acidosis noted on lab testing. This inpt stay is expected to cross 2 MNs from start of care Yes Antibiotic Stewardship (2) Infxn that will respond? Yes (S. PYOGENES) Right drug,dose,and route? Yes (UNASYN) More targeted antbx? No at 0703
--- NOTE | 2017-05-11 11:14 | SURGEON PROGRESS NOTE ---
Subjective data Subjective data: VIKAS ALMEDIA is a 47 M .Patient denies complaint of nausea and vomitting.He reports his last pain level as 2 on a 0-10 pain scale. Patient tolerating low fat diet. Still has some upper abdominal discomfort postprandially. Concerned about going home without medications to help him. Requests at least Phenergan. Assessment findings Assessment Exam General appearance: normal appearance, alert ABD: soft Patient plan Plan: Advance diet Additional data: Continue medical management for pancreatitis which has significantly improved. Hopefully home soon. Gastroenterology to see in office. Antibiotic Stewardship (2) Infxn that will respond? Yes (S. PYOGENES) Right drug,dose,and route? Yes (UNASYN) More targeted antbx? No at 1113
--- NOTE | 2017-05-11 11:14 | SURGEON PROGRESS NOTE ---
Subjective data Subjective data: VIKAS ALMEIDA is a 47 M .Patient denies complaint of nausea and vomitting.He reports his last pain level as 2 on a 0-10 pain scale. Patient tolerating low fat diet. Still has some upper abdominal discomfort postprandially. Concerned about going home without medications to help him. Requests at least Phenergan. Assessment findings Assessment Exam General appearance: normal appearance, alert ABD: soft Patient plan Plan: Advance diet Additional data: Continue medical management for pancreatitis which has significantly improved. Hopefully home soon. Gastroenterology to see in office. Antibiotic Stewardship (2) Infxn that will respond? Yes (S. PYOGENES) Right drug,dose,and route? Yes (UNASYN) More targeted antbx? No at 1113
[2017-05-12 04:04] VITALS: BP 153/70
[2017-05-12 06:45] LABS: HEMOGLOBIN 11.2 g/dL (14.1-18.0)
[2017-05-12] MEDS ORDERED: ZOFRAN4 MG PO (08:07)
[2017-05-12] MEDS ORDERED: PROTONIX40 MG PO (08:08)
[2017-05-12] MEDS ORDERED: REGLAN10 M2 PO (08:09)
[2017-05-12] MEDS ORDERED: TYLENOL WITH CO1 TA1 PO (08:09)
[2017-05-12 08:12] VITALS: BP 155/84
[2017-05-12 08:39] VITALS: BP 153/70
--- NOTE | 2017-05-12 09:09 | ACUTE CARE PROGRESS NOTE (QUA) ---
Progress Notes Subjective Date 05/12/17 Time 0745 Note Patient is sitting up on the side of the bed eating breakfast. States he feels "much better." He is tolerating oral intake fairly well, continues to have some mild epigastric discomfort and nausea. Sore throat has resolved. Alert and oriented x3. Lung sounds clear and equal throughout. Rate and rhythm regular. Pulses 2+. No LE edema. Abdomen soft, with mild epigastric tenderness. Normoactive Bowel Sounds. Pharynx/tonsils without erythema or exudate Patient/family reports: feeling better Objective Findings Last VS-Temp:98.3 B/P:153/70 Pulse:76 Resp:18 SaO2:95 ROOM AIR Last weight lbs:165 oz:5 K.984 Method:Bed Scales Reviewed: medications, vital signs, lab results, radiology report Assessment/Plan Problem List 1. Pancreatitis, acute Qualifiers: Pancreatitis type: unspecified pancreatitis type Acute pancreatitis complication: unspecified Qualified Code: K85.90 - Acute pancreatitis without necrosis or infection, unspecified 2. Type 1 diabetes 3. Infective pharyngitis 4. DKA (diabetic ketoacidoses) Qualifiers: Diabetes mellitus type: type 1 Diabetes mellitus complication detail: without coma Qualified Code: E10.10 - Type 1 diabetes mellitus with ketoacidosis without coma 5. Epigastric pain Patient condition Improving Plan: initiate discharge plan This inpt stay is expected to cross 2 MNs from start of care Yes Antibiotic Stewardship (2) Infxn that will respond? Yes (S. PYOGENES) Right drug,dose,and route? Yes (UNASYN) More targeted antbx? No at 0909
--- NOTE | 2017-05-12 09:16 | DISCHARGE SUMMARY STANDARD ---
Demographics Admit date: 05/02/17 Discharge date: 05/12/17 History of present illness History of present illness 47-year-old white male with type 1 diabetes who was at work on Tuesday and felt sick at the end of his work shift, and came home, since that time has been unable to keep fluids down, vomiting, and progressive epigastric pain. Came to the emergency department where he was found to have elevated amylase, lipase and have serum ketones positive along with hyperglycemic blood levels in the 500 range. Patient was diagnosed with "DKA" and admitted to step down unit with insulin drip and n.p.o. status. I reviewed ER notes, labs and x-ray testing. Hospital Course Hospital Course: Patient was admitted to step down unit for pancreatitis and DKA on insulin infusion. He was made NPO for GI rest. Serum acetone normalized overnight and insulin gtt was discontinued. Surgery was consulted for pancreatitis. Gallbladder ultrasound was obtained and found to be unremarkable. He developed some low grade temps and sore throat, sky cultures were obtained. He was started on Unasyn to cover bacterial pathogens. Throat culture revealed streptococcal infection. He continued to have reappearance of acetone throughout his admission requiring the insulin gtt to be restarted multiple times. This created significant concern; however appeared to be related to his infectious issues and dehydration. An Echo was obtained to r/o vegetations due to his strep infection , it was normal. Patient continued to have lingering pancreatitis symptoms and poor appetite. Gastroenterology was consulted who performed an EGD. Patient was found to have severe reflux esophagitis (grade D LA classification) with very small sliding hiatal hernia, bile reflux with mild linear reactive gastritis of antrum/body and normal third/fourth portion of duodenum with no evidence of SMA syndrome. Dr. Arzola suggested to continue PPI and start Reglan. He feels patient most likely has biliary pancreatitis due to his ongoing elevation of alkaline phosphatase. Plan to follow-up as outpatient in 1-2 weeks for MRCP. His diet was slowly advanced which he has tolerated well. Pharyngitis resolved. Epigastric pain and nausea have significantly improved. Discharge home on high dose PPI and Reglan. Continue insulin as at home. See medication reconciliation for complete list. CMP, CBC, Amylase and Lipase on Tuesday. Follow-up with Dr. Griffiths after labs on Tuesday. FU with Dr. Arzola in 1-2 weeks. Discharge diagnoses Problem List 1. Pancreatitis, acute 2. Type 1 diabetes 3. Infective pharyngitis 4. DKA (diabetic ketoacidoses) 5. Epigastric pain Medications Medications: Discharge meds are as noted. Follow up Follow up in office in: 4 DAYS with: Tunde GALVAN,Harley Sawant at 0440
[2017-05-12 10:12] VITALS: BP 153/70
== END 2017-05-12 10:10 | disposition home or self-care (01) | DRG 438 ==
LOC: ER 19:22 → 2ND 21:06 → ER 21:06 → ICU 21:06 → 2ND 21:06 → ICU 05-09 19:45 → 2ND 05-10 18:13
PROVIDERS: Emergency Medicine; Internal Medicine Adolescent Medicine; Internal Medicine Gastroenterology
PROC: 0DB58ZX Excision of Esophagus, Via Natural or Artificial Opening Endoscopic, Diagnostic (ICD-10-PCS; principal; 2017-05-09 15:00)
DX: K85.10 Biliary acute pancreatitis without necrosis or infection (principal); E10.10 Type 1 diabetes mellitus with ketoacidosis without coma; E87.2 Acidosis; Z79.4 Long term (current) use of insulin; E86.0 Dehydration; K30 Functional dyspepsia; J02.9 Acute pharyngitis, unspecified
CPT/HCPCS: J2405; Q9967

== ENCOUNTER → 2017-05-16 | Outpatient (CLI) | payer OTHER ==
[~2017-05-16] MED LIST changes: +HUMALOG KW100 UNIT/1 SQ; +PROTONIX40 MG PO; +REGLAN10 M2 PO; +TYLENOL WITH CO1 TA1 PO; +ZOFRAN4 MG PO
[2017-05-16 10:19] LABS: URINE BILIRUBIN - DIPSTICK NEGATIVE (NEG); URINE BLOOD NEGATIVE (NEG)
[2017-05-16 10:47] LABS: LYMPH # 1.9 K/mm3 (0.7-4.5); LYMPH % 17.2 % (10-50)
[2017-05-16 11:46] LABS: BUN 7 mg/dL (7-18)
[2017-05-16 12:03] LABS: GFR (ESTIMATED) 121 ML/MIN (>60)
== END ==
LOC: LAB 09:56
PROVIDERS: Internal Medicine
DX: K85.90 Acute pancreatitis without necrosis or infection, unspecified (principal); E10.22 Type 1 diabetes mellitus with diabetic chronic kidney disease; E10.65 Type 1 diabetes mellitus with hyperglycemia; N18.1 Chronic kidney disease, stage 1